=== PATIENT | male | born 1985 | race American Indian/Alaskan Native ===

== ENCOUNTER 2019-03-21 21:16 | Emergency (ER) | payer OTHER ==
[2019-03-21] MEDS ORDERED: IBUPROFEN ONE (23:23)
[2019-03-21] MEDS ORDERED: IBUPROFEN PO ONE (23:26)
--- NOTE | 2019-03-22 01:31 | Emergency Department Report ---
Chief Complaint: Dental/Oral Stated Complaint: TOOTHACHE Time Seen by Provider: 03/22/19 01:25 - HPI History of Present Illness: Mr. Angel is a healthy 33-year-old male who had a broken wisdom tooth.r past several months since the beginning of the year. After eating popcorn, he has severe pain. He feels that his nerve is exposed. He desires referral to dentist and something for pain. I performed a medical screening exam. Recommended ibuprofen [id number]. He does not have acute emergency condition. He has full range of motion of his mouth. Upon brief evaluation, he does have to fracture of tooth #16 without surrounding infection. - Exam Vital Signs: Vital Signs 03/21/19 03/21/19 23:13 23:28 Temperature 99.8 F H Pulse Rate 57 L Respiratory 12 18 Rate Blood Pressure 116/73 O2 Sat by Pulse 98 Oximetry MSE screening note: Focused history and physical exam performed. Due to findings the following was ordered: ED Disposition for MSE Condition: Stable
[2019-03-22 01:40] VITALS: BP 177/111
== END 2019-03-22 02:00 | disposition left against medical advice (07) ==
LOC: ED 21:16
DX: K08.89 Other specified disorders of teeth and supporting structures (principal)
CPT/HCPCS: 99282